=== PATIENT | female | born 1990 | race Caucasian/White ===

== ENCOUNTER 2016-11-10 17:18 | Emergency (ER) | payer MEDICAID ==
[2016-11-10 17:30] VITALS: BMI 33.9
[2016-11-10 17:32] VITALS: O2SAT 99
[2016-11-10] MEDS ORDERED: Alum-Mag Hydrox-Simethicone Susp (30 mL) PO PRN (17:53)
--- NOTE | 2016-11-10 18:07 | C.PDOC ---
History Of Present Illness 26 y/o female presents to the emergency department for evaluation after she accidentally swallowed a partial mouthful of Clorox. She states it was accidental, due to the Clorox being improperly labeled in her home. Patient states she is 12 weeks . Denies abdominal pain, vomiting, diarrhea, back pain, chest pain, or shortness of breath. Time Seen by Provider: 11/10/16 17:53 Chief Complaint (Nursing): Ingestion, Accidental History Per: Patient History/Exam Limitations: no limitations Onset/Duration Of Symptoms: Mins, Persistent Current Symptoms Are (Timing): Still Present Recent travel outside of the [place]: No Past Medical History Reviewed: Historical Data, Nursing Documentation, Vital Signs Vital Signs: Last Vital Signs Temp 97.6 F 11/10/16 17:30 Pulse 108 H 11/10/16 17:30 Resp 21 11/10/16 17:30 BP 103/71 11/10/16 17:30 Pulse Ox 99 11/10/16 18:30 - Medical History PMH: No Chronic Diseases Surgical History: No Surg Hx Family History: States: Unknown Family Hx - Social History Hx Tobacco Use: No Hx Alcohol Use: No Hx Substance Use: No - Immunization History Hx Tetanus Toxoid Vaccination: No Hx Influenza Vaccination: No Hx Pneumococcal Vaccination: No Review Of Systems Except As Marked, All Systems Reviewed And Found Negative. Constitutional: Positive for: Other (swallowed Clorox) Cardiovascular: Negative for: Chest Pain Respiratory: Negative for: Shortness of Breath Gastrointestinal: Negative for: Vomiting, Abdominal Pain, Diarrhea Musculoskeletal: Negative for: Back Pain Physical Exam - Physical Exam Appears: Non-toxic, No Acute Distress Skin: Normal Color, Warm, Dry, No Rash Head: Atraumatic, Normacephalic Eye(s): bilateral: Normal Inspection, PERRL Oral Mucosa: Moist Throat: Normal Neck: Normal ROM Chest: Symmetrical Cardiovascular: Rhythm Regular Respiratory: Normal Breath Sounds, No Accessory Muscle Use, No Stridor Gastrointestinal/Abdominal: Normal Exam, Soft, No Tenderness, Other (obese) Back: Normal Inspection, No CVA Tenderness Extremity: Normal ROM, No Swelling Neurological/Psych: Oriented x3, Normal Speech, Normal Cognition ED Course And Treatment O2 Sat by Pulse Oximetry: 99 (ra) Pulse Ox Interpretation: Normal Medical Decision Making Medical Decision Making: Patient c/o accidentally swallowing partial mouthful of Clorox just prior to arrival. Poison control contacted immediately on arrival to the emergency department, recommend supportive care. Plan: * Maalox P, milk- well tolerated No adverse effects on suspected. Heart tones in the 140's. Disposition Doctor Will See Patient In The: Office Counseled Patient/Family Regarding: Studies Performed, Diagnosis - Disposition Referrals: [facility] [Outside] Disposition: HOME/ ROUTINE Disposition Time: 18:29 Condition: GOOD Additional Instructions: drink more milk today Keep bleach and any other toxic material properly labled. Follow-up in our outpatient clinic as needed. Forms: General Discharge Instructions - Clinical Impression Clinical Impression: Accidental ingestion of substance, - Scribe Statement The provider has reviewed the documentation as recorded by the Scribe (Meredith Parks) Provider Attestation: All medical record entries made by the Scribe were at my direction and personally dictated by me. I have reviewed the chart and agree that the record accurately reflects my personal performance of the history, physical exam, medical decision making, and the department course for this patient. I have also personally directed, reviewed, and agree with the discharge instructions and disposition.
[2016-11-10] MEDS ORDERED: Alum-Mag Hydrox-Simethicone Susp (30 mL) ONE (18:17)
[2016-11-10 18:50] VITALS: BP 112/69; PULSE 97; RESP 18; TEMP 98.8
== END 2016-11-10 18:49 | disposition home or self-care (01) ==
LOC: C.ER 17:18
DX: T54.91XA Toxic effect of unspecified corrosive substance, accidental (unintentional), initial encounter (principal); O26.891 Other specified pregnancy related conditions, first trimester; Z3A.12 12 weeks gestation of pregnancy

== ENCOUNTER 2017-02-15 19:45 | Emergency (ER) | payer OTHER ==
--- NOTE | 2017-02-15 22:41 | US ---
EXAM: US Uterus, Limited CLINICAL HISTORY: 26 years old, female; Signs and symptoms; Lmp or gestational age (in weeks): [id number]; Other: Decreased movement; ; Prior surgery; Surgery type: TECHNIQUE: Real-time ultrasound of the maternal uterus (limited) with image documentation. COMPARISON: No relevant prior studies available. FINDINGS: Fetus: Single live intrauterine gestation. Estimated gestational age of 25 weeks 6 days by measurements. Estimated weight of 815 g. No gross anomaly is appreciated. Position: Breech. Heart rate: heart rate of 158 beats per minute. Placenta: Anterior placenta. No placenta previa or abruption. Amniotic fluid: Normal. Cervix: Closed cervix. Cervical length = 2.8 cm. Other findings: BPD: 6.6 cm, correlating with 26 weeks 3 days. HC: 24.5 cm, correlating with 26 weeks 4 days. AC: 20.7 cm, correlating with 25 weeks 2 days. FL: 4.6 cm, correlating with 25 weeks 2 days. IMPRESSION: 1. Single live intrauterine gestation. 2. Incidental/non-acute findings are described above.
--- NOTE | 2017-02-15 22:50 | OBHP ---
Datetime: 02/15/2017 22:08 IP Admit Plan: Discharge home Admit Comment, IP Provider: chief complaint-decreased movement HPI 26 y/o at 24 weeksa and 4 days with c/o not feeling the baby move for last 2 days.patient states that similar event happened last week as well.Patient deies vaginal bleeding or loss of fluid .repirt having abdoinal pain yesterday but none today.denies any trauma course ubcomplicated as per patient; pnc with ramon PMH denies PSH csection OBGYN HX ; [id number] Social hx denies tobacco,alcohol or illicit drug use Exam see exam section A/P Patient at 24 .4 wga with c/o decreased movement.FH=on doppler.Discussed with patient ab out starting iv fluids, checking cbc and cmp and doing an ultrasound.Patient refused treatment intial ly but later on decided to proceed with ultrasoudn only. 10.47pm patient returned from ultrasound.states that she felt movement once in ultrasound Ultarsound done. measurig 25 week and 6 days.Cervical length 2.8 cm and fhr 158bpm Results discussed with patient discharge home follow up in am with your regular obgyn Pelvic Type - PN: Adequate Extremities - PN: Normal Abdomen - PN: Normal Back - PN: Normal Lungs - PN: Normal Heart - PN: Normal Neurologic - PN: Normal General - PN: Normal FHR - Baseline A Provider: 140 Contraction Comments Provider: none EGA AdmitDate IP: 24.4 Vital Signs Provider: Reviewed; Within Normal Limits IP Chief Complaint: Decreased movement NICHD Variability Prov Fetus A: Moderate 6-25bpm Genitourinary Exam: Normal DTRs - PN: Normal
== END 2017-02-15 22:48 | disposition home or self-care (01) ==
LOC: C.EROB 19:45
DX: O36.8120 Decreased fetal movements, second trimester, not applicable or unspecified (principal); Z3A.24 24 weeks gestation of pregnancy

== ENCOUNTER 2018-01-24 20:54 | Emergency (ER) | payer OTHER ==
[2018-01-24 20:54] VITALS: BMI 33.9
[2018-01-24 21:12] VITALS: BP 121/86; PULSE 79; RESP 20; TEMP 98.1; O2SAT 100
--- NOTE | 2018-01-24 22:16 | C.PDOC ---
History Of Present Illness 27 year old female presents to the ER with a complaint of generalized body aches for the past few months. Patient has been seen by her PMD and printer machine, and has an appointment with a neurologist on 12/30/17, however, she has not had any relief with naproxen and is requesting something for the pain. Denies recent trauma, weakness, or numbness. Time Seen by Provider: 01/24/18 21:41 Chief Complaint (Nursing): Flu-like Symptoms History Per: Patient History/Exam Limitations: no limitations Onset/Duration Of Symptoms: Days Current Symptoms Are (Timing): Still Present Recent travel outside of the [place]: No Past Medical History Reviewed: Historical Data, Nursing Documentation, Vital Signs Vital Signs: Last Vital Signs Temp 98.1 F 01/24/18 21:11 Pulse 79 01/24/18 21:11 Resp 20 01/24/18 21:11 BP 121/86 01/24/18 21:11 Pulse Ox 100 01/24/18 22:25 Family History: States: Unknown Family Hx - Social History Hx Tobacco Use: No Hx Alcohol Use: No Hx Substance Use: No - Immunization History Hx Tetanus Toxoid Vaccination: No Hx Influenza Vaccination: No Hx Pneumococcal Vaccination: No Review Of Systems Constitutional: Negative for: Fever, Chills Musculoskeletal: Positive for: Other (Generalized body aches) Skin: Negative for: Rash Neurological: Negative for: Weakness, Numbness Physical Exam - Physical Exam Appears: Non-toxic Skin: Normal Color, Warm, Dry Head: Atraumatic, Normacephalic Eye(s): bilateral: Normal Inspection Oral Mucosa: Moist Neck: Normal, Supple Chest: Symmetrical, No Tenderness Cardiovascular: Rhythm Regular Respiratory: Normal Breath Sounds, No Rales, No Rhonchi, No Wheezing Gastrointestinal/Abdominal: Soft, No Tenderness Extremity: Normal ROM (x4), No Tenderness, No Deformity, No Swelling (to joints) Neurological/Psych: Oriented x3, Normal Speech, Normal Motor, Normal Sensation ED Course And Treatment O2 Sat by Pulse Oximetry: 100 (Room air) Pulse Ox Interpretation: Normal Progress Note: Neurontin administered. Patient reports improvement of pain, she is resting comfortably in the ER in no acute distress, vitals are stable, will discharge home with Rx and instructions to follow up with neurologist as scheduled. Disposition - Disposition Referrals: Juventino Khalil MD [Medical Doctor] - Disposition: HOME/ ROUTINE Disposition Time: 22:11 Condition: STABLE Additional Instructions: Please keep appointment with Neurologist Take neurontin as prescribed May follow up with Dr Khalil until neuro follow up Return to ER if worse Prescriptions: Gabapentin [Neurontin] 300 mg PO BID #14 cap Instructions: Muscle and Bone Pain (DC) Forms: [employer] (Armenian) - Clinical Impression Clinical Impression: Myalgia - PA / DANDY OPERATOR / Resident Statement MD/DO has reviewed & agrees with the documentation as recorded. - Scribe Statement The provider has reviewed the documentation as recorded by the Scribe Cruz Marte All medical record entries made by the Ciaranibjessy were at my direction and personally dictated by me. I have reviewed the chart and agree that the record accurately reflects my personal performance of the history, physical exam, medical decision making, and the department course for this patient. I have also personally directed, reviewed, and agree with the discharge instructions and disposition.
== END 2018-01-24 22:27 | disposition home or self-care (01) ==
LOC: C.ER 20:54
DX: M79.1 Myalgia (principal)